=== PATIENT | male | born 1970 | race Caucasian/White ===

== ENCOUNTER 2017-07-14 17:14 | Emergency (ER) | payer BC, OTHER ==
[~2017-07-14] VITALS: Ht 167.6 cm; Wt 100.2 kg
[~2017-07-14 17:14] MED LIST: HYDR25TA5 PO
[2017-07-14 17:20] VITALS: TEMP 37.1
[2017-07-14] MEDS ORDERED: SODIUM CHLORIDE 0.9% 1000ML 1,000 ML IV STA (17:27)
--- NOTE | 2017-07-14 18:01 | EMERGENCY ROOM VISIT NOTE ---
ED Visit Note First contact with patient: 17:22 CHIEF COMPLAINT: Hyperglycemia HISTORY OF PRESENTING ILLNESS: This is a 47-year-old male who presents to the emergency department today with concern for an elevated blood sugar. Patient states that he had a routine visit with his family doctor today and had blood work done, and was noted to have a blood sugar greater than 500. His primary care doctor told him to go directly to the ER for further evaluation. Patient denies any history of diabetes, but states a family history for this. He states that he has been having increased thirst, dry mouth, and increased urination for the past couple of weeks. He also notes a 10 pound weight loss over the past month or 2 and has been having some increased blurry vision off and on. He does note that he has had some loose stools for the past few days, but denies any nausea or vomiting, abdominal pain, dizziness or syncope, chest pain, shortness of breath, back pain, bloody or black stools, dysuria or hematuria, or unusual rash. REVIEW OF SYSTEMS: A complete 10 point review of systems was reviewed with the patient with pertinent positives and negatives as per history of present illness. All else were negative. PAST MEDICAL HISTORY: Reviewed in chart. SOCIAL HISTORY: Lives at home. Denies tobacco use ALLERGIES:. Reviewed in chart. PHYSICAL EXAM: CONSTITUTIONAL: Pleasant and cooperative. No acute distress. Well appearing and well nourished. HEENT: Normocephalic, atraumatic. Pupils equal, round and reactive to light, EOMI. TMs normal. Pharynx normal. NECK: Supple, full active range of motion without discomfort. RESPIRATORY: Clear to auscultation bilaterally with no wheezing, crackles, rhonchi or stridor. Equal expansion bilaterally. CARDIOVASCULAR: Regular rate and rhythm with no murmurs, rubs or gallops. Normal peripheral perfusion. No edema. GASTROINTESTINAL: Soft, nontender, nondistended. No palpable masses or HSM. Bowel sounds present in all quadrants. MUSCULOSKELETAL: Full range of motion of all joints without discomfort. INTEGUMENTARY: No rash or other significant dermatologic conditions noted. NEUROLOGIC: Alert and oriented X 4 with normal affect. Normal speech. Normal gait observed. ED COURSE AND MEDICAL DECISION MAKING: CC: Patient presenting with complaint of hyperglycemia DIFFERENTIAL DIAGNOSIS: Includes, but not limited to hyperglycemia, new onset diabetes, DKA, other electrolyte abnormality, dehydration, pancreatitis, among others. INTERPRETATION OF LABS: No leukocytosis, no anemia, marked hyperglycemia, no other significant electrolyte abnormalities, normal renal function, mildly elevated transaminases, normal lipase. No acidosis on VBG and gap is closed. UA shows 3+ glucose, but no ketones and no infection. MEDICATION RECONCILIATION: I attest that I have personally reviewed the patient 's current medication list. INITIAL VITAL SIGNS REVIEW: I reviewed the patient's initial vital signs and interpret them as follows: T: Afebrile; BP: Hypertensive; HR: Mildly tachycardic; RR: Within normal limits; Pulse Ox: Within normal limits on room air. Blood pressure screening: The patient was found to have an elevated blood pressure and was referred to their primary doctor for recheck and further treatment. SUMMARY: Patient was evaluated at bedside, history and physical exam performed. Patient is alert and oriented, no acute distress, resting calmly in the stretcher. Patient has no complaints at this time. He does not appear significantly dehydrated on exam. Bedside glucose 407. Orders were placed at bedside for labs, UA, IV placement and IV fluid bolus for hydration to evaluate for causes of hyperglycemia. Patient discussed with Dr. Poe, who agrees with my assessment and plan. Labs reviewed as above, consistent with significant hyperglycemia suspicious for diabetes. No evidence of DKA. No ketonuria. Hemoglobin A1c pending. Spoke with case management regarding diabetes education set up, Buddy with case management spoke with patient to arrange this. Patient reassessed multiple times throughout ED stay, patient remained stable with no complaints. I discussed starting the patient on metformin, he would like to do this. Rx for metformin sent patient's pharmacy and he was educated regarding its use, specifically regarding signs and symptoms of hypoglycemia. Patient was updated on all results and plan for discharge, he was instructed to follow closely with his primary care provider Patient was also given strict return precautions should his symptoms worsen, he verbalized understanding. Patient was discharged home in stable condition and ambulatory. Problem List Medical Problems: (1) HTN (hypertension) Status: Chronic (2) Kidney stones Status: Chronic Current/Historical Medications Scheduled Hydrochlorothiazide (Hydrochlorothiazide), 25 MG PO QAM Metformin Hcl (Glucophage), 1 TAB PO BID Allergies Coded Allergies: Doxycycline (Verified Adverse Reaction, Unknown, Nausea/vomiting., 07/14/17) [place] (Unverified Adverse Reaction, Unknown, orange juice = gi upset, 07/14) Tetracycline (Verified Adverse Reaction, Unknown, Nausea/vomiting., 07/14/17 ) Vital Signs Date Time Temp Pulse Resp B/P (MAP) Pulse Ox O2 Delivery O2 Flow Rate FiO2 07/14/17 22:05 Room Air 07/14/17 21:12 90 18 171/106 98 Room Air 07/14/17 19:42 108 07/14/17 18:40 99 16 162/111 96 Room Air 158/105 07/14/17 17:20 37.1 104 20 160/126 97 Room Air Laboratory Results 07/14/17 17:44 Red Blood Count 4.73, Mean Corpuscular Volume 84.1, Mean Corpuscular Hemoglobin 31.3, Mean Corpuscular Hemoglobin Concent 37.2, Neutrophils (%) (Auto) 56.5, Lymphocytes (%) (Auto) 35.2, Monocytes (%) (Auto) 4.8, Eosinophils (%) (Auto) 2.7, Basophils (%) (Auto) 0.6, Neutrophils # (Auto) 2.94, Lymphocytes # (Auto) 1.83, Monocytes # (Auto) 0.25, Eosinophils # (Auto) 0.14, Basophils # (Auto) 0.03 07/14/17 17:44 Test 07/14/17 17:44 07/14/17 17:45 07/14/17 19:37 White Blood Count 5.20 K/uL (4.8-10.8) Red Blood Count 4.73 M/uL (4.7-6.1) Hemoglobin 14.8 g/dL (14.0-18.0) Hematocrit 39.8 % (42-52) Mean Corpuscular Volume 84.1 fL (80-100) Mean Corpuscular Hemoglobin 31.3 pg (25-34) Mean Corpuscular Hemoglobin Concent 37.2 g/dl (32-36) Platelet Count 216 K/uL (130-400) Neutrophils (%) (Auto) 56.5 % Lymphocytes (%) (Auto) 35.2 % Monocytes (%) (Auto) 4.8 % Eosinophils (%) (Auto) 2.7 % Basophils (%) (Auto) 0.6 % Neutrophils # (Auto) 2.94 K/uL (1.4-6.5) Lymphocytes # (Auto) 1.83 K/uL (1.2-3.4) Monocytes # (Auto) 0.25 K/uL (0.11-0.59) Eosinophils # (Auto) 0.14 K/uL (0-0.5) Basophils # (Auto) 0.03 K/uL (0-0.2) Immature Granulocyte % (Auto) 0.2 % Immature Granulocyte # (Auto) 0.01 K/uL (0.00-0.02) Red Blood Cell Morphology Unremarkable Urine Color YELLOW Urine Appearance CLEAR (CLEAR) Urine pH 5.0 (4.5-7.5) Urine Specific [place] > 1.035 (1.000-1.030) Urine Protein NEG (NEG) Urine Glucose (UA) 3+ (NEG) Urine Ketones NEG (NEG) Urine Occult Blood NEG (NEG) Urine Nitrite NEG (NEG) Urine Bilirubin NEG (NEG) Urine Urobilinogen NEG (NEG) Urine Leukocyte Esterase NEG (NEG) Venous Blood pH 7.42 (7.36-7.41) Venous Blood Partial Pressure CO2 40 mmHg (38.0-50.0) Venous Blood Partial Pressure O2 46 mmHg Venous Blood HCO3 26 mmol/L Venous Blood Oxygen Saturation 80.1 % Venous Blood Base Excess 1.3 mEq/L Anion Gap 10.0 mmol/L (3-11) Est Creatinine Clear Calc Drug Dose 87.6 ml/min Estimated GFR () 85.9 Estimated GFR (Non- 74.1 BUN/Creatinine Ratio 10.8 (10-20) Calcium Level 9.1 mg/dl (8.5-10.1) Total Bilirubin 0.7 mg/dl (0.2-1) Direct Bilirubin 0.2 mg/dl (0-0.2) Aspartate Amino Transf (AST/SGOT) 39 U/L (15-37) Alanine Aminotransferase (ALT/SGPT) 98 U/L (12-78) Alkaline Phosphatase 122 U/L (45-117) Total Protein 8.3 gm/dl (6.4-8.2) Albumin 4.2 gm/dl (3.4-5.0) Lipase 204 U/L (73-393) Bedside Glucose 407 mg/dl (70-99) Beta-Hydroxybutyric Acid mg/dL (0.2-2.81) Medications Administered Medications (Trade) Dose Ordered Sig/Melania Route Start Time Stop Time Status Last Admin Dose Admin Sodium Chloride 1,000 ml @ 999 mls/hr Q1H1M STAT IV 07/14/17 17:27 07/14/17 18:27 DC 07/14/17 17:47 999 MLS/HR Departure Information Impression Primary Impression: New onset type 2 diabetes mellitus Dispostion Home / Self-Care Condition GOOD Prescriptions Metformin Hcl (GLUCOPHAGE) 500 Mg Tab 1 TAB PO BID for 14 Days, #28 TAB 1 Refill Prov: Jane Yang CRNP 07/14/17 Referrals Stephane Espinoza, D.OFelipe (PCP) Patient Instructions ED Diabetes General Info, ED Hyperglycemia [facility] Diabetes, [facility] Additional Instructions You have been evaluated and treated in the emergency department today for your hypoglycemia (high blood sugar). It is suspected that you have type 2 diabetes mellitus. You have been prescribed metformin 500 mg to start treating your diabetes. Start by taking 1 tablet once a day for the first few days, and advanced to taking 1 tablet twice a day as tolerated. Metformin may cause stomach upset or diarrhea. Talk to your primary care provider for further management with medications. Case management has provided with information to help set you up to see the clinical nurse educator. They will provide you with education regarding the diabetes illness, managing changes to your diet, and monitoring your blood sugar levels. Please follow closely with your primary care provider and call their office to set up a follow-up appointment within the next few days. Please return to the emergency department for any worsening symptoms, including persistent vomiting or diarrhea, severe dizziness or passing out, confusion or changes in mental status, or any other concerns.
[2017-07-14 18:47] LABS: HEMATOCRIT 39.8 % (42-52); HEMOGLOBIN 14.8 g/dL (14.0-18.0); MEAN CELL VOLUME 84.1 fL (80-100); MEAN CORPUSCULAR HEMOGLOBIN 31.3 pg (25-34); MEAN CORPUSCULAR HGB CONC 37.2 g/dl (32-36); PLATELET COUNT 216 K/uL (130-400)
[2017-07-14 18:48] LABS: ALBUMIN 4.2 gm/dl (3.4-5.0); CALCIUM 9.1 mg/dl (8.5-10.1); CREATININE 1.18 mg/dl (0.60-1.40); TOTAL PROTEIN 8.3 gm/dl (6.4-8.2)
[2017-07-14 18:49] LABS: BASO % 0.6 %; BASO ABS # 0.03 K/uL (0-0.2); EOS % 2.7 %; EOS ABS # 0.14 K/uL (0-0.5); IG# 0.01 K/uL (0.00-0.02); LYMPH % 35.2 %; LYMPH ABS # 1.83 K/uL (1.2-3.4); MONO % 4.8 %; MONO ABS # 0.25 K/uL (0.11-0.59); NEUT % 56.5 %; NEUT ABS # 2.94 K/uL (1.4-6.5)
[2017-07-14 19:30] LABS: POTASSIUM 3.8 mmol/L (3.5-5.1)
[2017-07-14 22:05] VITALS: Ht 167.6 cm; Wt 100.2 kg
[2017-07-14] MEDS ORDERED: METF500T PO (22:16)
[2017-07-14 22:41] VITALS: BP 153/113; PULSE 78; O2SAT 98
== END 2017-07-14 22:41 | disposition home or self-care (01) ==
LOC: C.EDB 17:16
DX: E11.9 Type 2 diabetes mellitus without complications (principal); I10 Essential (primary) hypertension; Z87.442 Personal history of urinary calculi; Z79.899 Other long term (current) drug therapy; Z88.1 Allergy status to other antibiotic agents; Z91.018 Allergy to other foods

== ENCOUNTER → 2017-08-20 | Outpatient (CLI) | payer OTHER ==
[~2017-08-20] VITALS: Ht 167.6 cm; Wt 95.3 kg
[~2017-08-20] MED LIST changes: +METF500T PO
[2017-08-20 17:00] VITALS: BMI 33.9
[2017-08-20 17:34] VITALS: BP_DIAS 84
[2017-08-21 10:10] VITALS: Ht 167.6 cm; Wt 95.3 kg
--- NOTE | 2017-10-13 06:43 | CODING QUERY NO DIAGNOSIS ---
TREATMENT RENDERED WITHOUT A DIAGNOSIS Dr. Espinoza, To promote full compliance with coding requirements relating to patient care, physician participation is requested in all cases of surg tech uncertainty. Please assist us with providing a diagnosis/symptom for the test(s) below: A diagnosis/symptom was not documented on your Order. A valid diagnosis/symptom is required to bill all insurances. Please remember that we are unable to code a diagnosis of rule out, probable, possible, questionable, or suspected. Tests that require a diagnosis: * DIAB SMT INDIVIDUAL/30 MINUTES X2 DIAGNOSIS: DATE OF SERVICE: 08/20/17 Provider Signature: Date: Thank you Faustino Han [facility] Information Management Once completed, please kindly fax back to [phone] For questions please call [phone]
== END | disposition home or self-care (01) ==
LOC: C.NRED 12:59
PROVIDERS: ATTEND Family Medicine
DX: E11.9 Type 2 diabetes mellitus without complications (principal)